=== PATIENT | female | born 1965 | race Caucasian/White ===

== ENCOUNTER 2024-04-17 08:04 | Outpatient (REF) | payer OTHER, SELFPAY | END 2024-04-17 08:05 | disposition home or self-care (01) | LOC: HO.BBR 08:04 | PROVIDERS: Visit Provider Hospitalist | DX: Z13.89 Encounter for screening for other disorder (principal) ==

== ENCOUNTER 2024-05-16 08:11 | Outpatient (REF) | payer OTHER, SELFPAY | END 2024-05-16 08:12 | disposition home or self-care (01) | LOC: HO.BBR 08:11 | PROVIDERS: Visit Provider Hospitalist | DX: Z13.89 Encounter for screening for other disorder (principal) ==

== ENCOUNTER 2024-06-13 08:06 | Outpatient (REF) | payer OTHER, SELFPAY | END 2024-06-13 08:07 | disposition home or self-care (01) | LOC: HO.BBR 08:06 | PROVIDERS: Visit Provider Hospitalist | DX: Z13.89 Encounter for screening for other disorder (principal) ==

== ENCOUNTER 2024-08-19 08:01 | Outpatient (REF) | payer OTHER, SELFPAY | END 2024-08-19 08:02 | disposition home or self-care (01) | LOC: HO.BBR 08:01 | PROVIDERS: Visit Provider Hospitalist | DX: Z13.89 Encounter for screening for other disorder (principal) ==

== ENCOUNTER 2024-11-03 14:51 | Outpatient (REF) | payer OTHER, SELFPAY | END 2024-11-03 14:52 | disposition home or self-care (01) | LOC: HO.BBR 14:51 | PROVIDERS: Visit Provider Hospitalist | DX: Z13.89 Encounter for screening for other disorder (principal) ==

== ENCOUNTER 2024-12-29 14:49 | Outpatient (REF) | payer OTHER, SELFPAY | END 2024-12-29 14:50 | disposition home or self-care (01) | LOC: HO.BBR 14:49 | PROVIDERS: Visit Provider Hospitalist | DX: Z13.89 Encounter for screening for other disorder (principal) ==